=== PATIENT | male | born 1990 | race Two or more races ===

== ENCOUNTER 2024-05-29 08:50 | Emergency (ER) | payer OTHER, SELFPAY ==
[2024-05-29 09:10] VITALS: BP 107/70; PULSE 70; RESP 19; TEMP 36.8; O2SAT 98
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
== END 2024-05-29 10:25 | disposition home or self-care (01) ==
PROVIDERS: Emergency Provider Family Medicine
DX: S13.4XXA Sprain of ligaments of cervical spine, initial encounter (principal); V89.2XXA Person injured in unspecified motor-vehicle accident, traffic, initial encounter
CPT/HCPCS: 72040; 99283